=== PATIENT | male | born 1955 | race Two or more races ===

== ENCOUNTER 2018-03-30 08:35 | Outpatient (CLI) | payer OTHER | END 2018-03-30 08:44 | disposition home or self-care (01) | LOC: MRI 08:35 | DX: S83.232A Complex tear of medial meniscus, current injury, left knee, initial encounter (principal) | CPT/HCPCS: 73718 ==

== ENCOUNTER 2022-08-22 19:02 | Emergency (ER) | payer OTHER ==
[~2022-08-22] VITALS: Ht 177.8 cm; Wt 131.5 kg
[2022-08-22] MEDS ORDERED: CRESTOR40 MG PO (19:21)
[2022-08-22] MEDS ORDERED: ADULT LOW DOSE81 M1 PO (19:21)
[2022-08-22] MEDS ORDERED: CARVEDILOL6.25 MG (19:21)
[2022-08-22] MEDS ORDERED: DIOVAN320 MG PO (19:21)
[2022-08-23] MEDS ORDERED: CIPRO500 MG PO (01:44)
[2022-08-23] MEDS ORDERED: TAMS0.4C PO (01:44)
[2022-08-23] MEDS ORDERED: KETO10TA2 PO (01:44)
== END 2022-08-23 02:01 | disposition home or self-care (01) ==
LOC: ER 19:02
DX: N20.0 Calculus of kidney (principal); N28.1 Cyst of kidney, acquired; K57.30 Diverticulosis of large intestine without perforation or abscess without bleeding; R10.9 Unspecified abdominal pain; I10 Essential (primary) hypertension

== ENCOUNTER 2023-09-11 19:42 | Emergency (ER) | payer OTHER ==
[~2023-09-11] VITALS: Ht 177.8 cm; Wt 127.0 kg
[~2023-09-11 19:42] MED LIST: ADULT LOW DOSE81 M1 PO; CARVEDILOL6.25 MG; CIPRO500 MG PO; CRESTOR40 MG PO; DIOVAN320 MG PO; KETO10TA2 PO; TAMS0.4C PO
[2023-09-11 21:07] LABS: HEMATOCRIT 45.1 % (39.0-48.0); HEMOGLOBIN 15.1 g/dL (13-16.00); MEAN CELL VOLUME 80.5 fL (80.0-100.00); MEAN CORPUSCULAR HEMOGLOBIN 26.9 pg (27.00-32.0); MEAN CORPUSCULAR HGB CONC 33.4 g/dl (32.0-36.0); PLATELET COUNT 255 K/uL (150-450); RED CELL DISTRIBUTION WIDTH 15.8 % (11.5-14.5)
[2023-09-11 21:38] LABS: ALBUMIN 4.1 gm/dL (3.4-5.0); BILIRUBIN TOTAL 0.66 mg/dL (0.3-1.2); CALCIUM 9.3 mg/dL (8.5-10.1); CREATININE SERUM 0.95 mg/dL (0.70-1.30); GFR 79.32; GLOBULINA 3.1 G/DL (2.4-3.5); POTASSIUM 4.83 mEq/L (3.5-5.1); TOTAL PROTEIN 7.2 gm/dL (6.4-8.2)
== END 2023-09-11 22:07 | disposition home or self-care (01) ==
LOC: ER
DX: I10 Essential (primary) hypertension (principal)

== ENCOUNTER 2024-10-21 11:59 | Outpatient (CLI) | payer OTHER ==
[~2024-10-21 11:59] MED LIST changes: +CARVEDILOL25 MG PO; +LIPITOR80 MG PO
== END 2024-10-21 12:14 | disposition home or self-care (01) ==
LOC: RAD 11:59
DX: M72.2 Plantar fascial fibromatosis (principal); M79.671 Pain in right foot; M79.672 Pain in left foot